=== PATIENT | male | born 1970 | race Caucasian/White ===

== ENCOUNTER 2019-05-29 00:49 | Day surgery (SDC) | payer OTHER, SELFPAY ==
[2019-05-26 12:56] VITALS: BMI 25.9
[2019-05-29 06:35] VITALS: BP 129/75; PULSE 75; RESP 18; TEMP 36.2; O2SAT 100; BMI 27.1
[2019-05-29] MEDS: LACTATED RINGERS 1,000 ML 150 ML IV CONT (06:48)
--- NOTE | 2019-05-29 08:05 | WPDANESEPPF ---
Anes - Initial Pre Proc Eval Procedure: Operation Date: 05/29/19 08:30 Proposed Procedures p Esophagogastroduodenoscopy - Parker Jauregui DO Date/Time: 05/29/19 08:05 Surgeon: Parker Jauregui DO Pre Op Diagnosis: dysphagia Patient Data Age: 48 Gender: M Height: 5 ft 11 in Weight: 88.14 kg Last Vital Signs Temp 36.2 C L 05/29/19 06:35 Pulse 75 05/29/19 06:35 Resp 18 05/29/19 06:35 BP 129/75 05/29/19 06:35 Pulse Ox 100 05/29/19 06:35 Allergies Allergy/AdvReac Type Severity Reaction Status Date / Time No Known Allergies Allergy Verified 05/29/19 06:34 Home Medications Medication Instructions Recorded Confirmed Type acetaminophen [Tylenol Extra 1,500 mg PO BID 05/26/19 05/26/19 History Strength] ibuprofen 400 mg PO BID 05/26/19 05/26/19 History Patient hx anesthesia problems: none Family hx anesthesia problems: none PMFSH Family History Family History Father Family history of type 1 diabetes mellitus Social History Social History Smoking status: Never smoker Second hand tobacco smoke exposure: No Alcohol intake: never Gender identity (if verbalized by the patient): Male Anes - Eval Final PreProcedure Day of Procedure 05/29/19 08:05 Patient weight: overweight Heart: regular rate and rhythm Lungs: clear to auscultation Airway: Mallampati scale class II Neurological: alert and oriented Last oral intake: >/= 8 hours ASA classification: II Emergent: no Anesthetic plan: proceed Anesthesia type and monitoring: general GIVS and standard monitoring Informed Consent: The patient's anesthetic plan and its attendant risks and benefits were discussed with the patient/family/POA. Questions were solicited and answers provided to the satisfaction of the patient/family/POA.
--- NOTE | 2019-05-29 08:19 | PM.IMHP ---
H&P: HPI History of Present Illness Chief complaint: dysphagia Narrative: Reason for visit EGD. This very pleasant gentleman is seen in consultation at the request of the primary physician and with the patient's permission. Impression: This very pleasant gentleman is history of dysphagia. He has a previous history of GERD/eosinophilic esophagitis. Recommendation: EGD. History: Very pleasant gentleman is a history of reflux disease /eosinophilic esophagitis. Patient has developed recurrent dysphagia. He is here for endoscopic evaluation to assess for lying stricture. Will also determine if a recurrent therapy for eosinophilic esophagitis was required. Physical examination: General: very pleasant patient in no acute distress. HEENT: Head was normocephalic sclerae is clear mouth without masses neck was supple. Heart: Rate rhythm regular without S3 or S4. Lungs: CTA. Abdomen: Soft with no guarding or rigidity. Bowel sounds were active. Neurologic: Cranial nerves 2 through 12 intact. No focal defects. No clonus. Musculoskeletal system: Revealed no joint tenderness or swelling no muscle atrophy. Extremities: Reveal no significant edema. Skin: Warm and dry with normal turgor. Mental status: intact. Patient is alert and oriented. Review of Systems Review of Systems: All systems reviewed & are unremarkable except as noted in HPI and below PMFSH Surgical History Surgical History (Updated 05/29/19 @ 08:28 by Parker Jauregui DO) H/O colonoscopy History of esophagogastroduodenoscopy (EGD) History of tonsillectomy and adenoidectomy Family History Family History Father Family history of type 1 diabetes mellitus Social History Social History Smoking status: Never smoker Second hand tobacco smoke exposure: No Alcohol intake: never Gender identity (if verbalized by the patient): Male Meds Home Medications and Allergies Home Medications Medication Instructions Recorded Confirmed Type acetaminophen [Tylenol Extra 1,500 mg PO BID 05/26/19 05/26/19 History Strength] ibuprofen 400 mg PO BID 05/26/19 05/26/19 History Allergies Allergy/AdvReac Type Severity Reaction Status Date / Time No Known Allergies Allergy Verified 05/29/19 06:34 Vital Signs Vital Signs - 24 hr 05/29/19 06:35 Temperature 36.2 C L Pulse Rate 75 Respiratory Rate 18 Blood Pressure 129/75 Pulse Oximetry 100
[2019-05-29 08:42] VITALS: BP 107/70; PULSE 67; RESP 19; O2SAT 99
[2019-05-29 08:52] VITALS: BP 98/67; PULSE 69; RESP 18; O2SAT 98
[2019-05-29 09:02] VITALS: BP 111/76; PULSE 55; RESP 20; O2SAT 100
== END 2019-05-29 09:15 | disposition home or self-care (01) ==
PROVIDERS: PCP Family Medicine; Visit Provider Internal Medicine Gastroenterology
PROC: 0DJ08ZZ Inspection of Upper Intestinal Tract, Via Natural or Artificial Opening Endoscopic (ICD-10-PCS; CPT 43235; principal; 2019-05-29 08:30)
DX: K22.2 Esophageal obstruction (principal); K21.0 Gastro-esophageal reflux disease with esophagitis
CPT/HCPCS: 43249; 43239; 87081; 88305; C1726; J2704; J7120

== ENCOUNTER 2022-09-22 00:35 | Day surgery (SDC) | payer OTHER, SELFPAY ==
[2022-09-18 13:05] VITALS: BMI 26.2
--- NOTE | 2022-09-18 13:20 | PC.NURSE ---
Report to the Outpatient Waiting Room, entrance under the green pavilion located off [facility], at 1000 on 09/22/2022. Planned Procedure Time: 1200. Time changes happen often and if your time is changed the preop area will call you the afternoon before. - You and your visitor will be asked to self-screen and do not enter if you have any COVID symptoms. - A mask is optional within the hospital at this time. Patients may have clear liquids (water, carbonated beverages, clear teas, apple juice) until 3 hours prior to surgery with a maximum of 20 ounces. - No food from midnight until time of surgery. Take the following medications with a SIP of water the morning of surgery: CELEBREX, TYLENOL, TRAMADOL DO NOT STOP ANY OF YOUR OTHER PRESCRIPTION MEDICATIONS PRIOR TO SURGERY ?EXCEPT THE FOLLOWING Medications to discontinue per physician ALL VITAMINS/SUPPLEMENTS 3 DAYS PRIOR TO SURGERY Date to take last dose Please no make-up, nail slovak, hairspray, perfume, deodorant, or body powder the day of surgery. No jewelry (including any body piercings) or valuables the day of surgery, leave them at home. Please take a shower or bath the night before, or the morning of, surgery with an antibacterial soap. Wear comfortable, loose fitting clothing. - Jewelry must be removed prior to entering the operating room. Rings and piercings that are not removed may be cut off. - The hospital will not accept responsibility for valuables. - Please leave all valuables, including medications, at home the day of surgery. If you are going home after surgery, a licensed cdl flatbed truck driver must drive you home. - NO public transportation without another adult if you receive anesthesia. - We recommend that an adult stay with you for 24 hours following discharge. - We also recommend that you do not drive, make important decision, drink alcoholic beverages, or take any drugs that were not prescribed by your health care provider for at least 24 hours after your discharge time. Follow any additional instructions given to you from your surgeon. If you or anyone in your household have experienced Covid symptoms in the past week, please notify your surgeon or the nurse liaison at the phone number below for possible testing. Telephone instructions given to patient and asked if any additional questions and then verbalized understanding. Patient advised to call surgeon office or pre surgery nurse liaison [phone] if any additional questions.
--- NOTE | 2022-09-18 13:28 | PC.NURSE ---
Dr. Freire aware of maternal great uncle's hx of MH-nothing further needed.
[2022-09-22] VITALS (10 sets, daily range): BP systolic 119–134; BP diastolic 72–85; PULSE 68–93; RESP 12–14; TEMP 36.7; O2SAT 98–100
[2022-09-22] MEDS: LACTATED RINGERS 1,000 ML 30 ML IV CONT ×2 (10:45→14:50)
--- NOTE | 2022-09-22 11:44 | WPDANESEPPF ---
Anes - Initial Pre Proc Eval Procedure: Operation Date: 09/22/22 12:00 Proposed Procedures p Left Arthroscopic Rotator Cuff Repair - Herbert Flaherty MD Date/Time: 09/22/22 11:44 Surgeon: Herbert Flaherty MD Pre Op Diagnosis: complete left rotator cuff tear Patient Data Age: 52 Gender: M Height: 1.79 m Weight: 85.65 kg Allergies Allergy/AdvReac Type Severity Reaction Status Date / Time No Known Allergies Allergy Verified 09/18/22 13:00 Home Medications Medication Instructions Recorded Confirmed Type acetaminophen 500 mg tablet 1,500 mg PO BID 05/26/19 09/22/22 History (Tylenol Extra Strength) omeprazole 40 mg capsule,delayed 40 mg PO DAILY PRN Indigestion 10/02/19 09/22/22 History release celecoxib 100 mg capsule (Celebrex) 100 mg PO BID #60 caps 03/05/22 09/22/22 Rx tramadol 50 mg tablet 50 mg PO Q6H PRN Pain 07/12/22 09/22/22 History ascorbic acid (vitamin C) 1,000 mg 4 g PO DAILY 09/18/22 09/22/22 History capsule glucosamine HCl-sulfate mix 200 1 tablet PO BID 09/18/22 09/22/22 History mg-300 mg tablet fouvxosh-vs-kukhf 300 mcg-K 60 1 tablet PO DAILY 09/18/22 09/22/22 History mcg-lycop 600 mcg-lutein 300 mcg tablet (Centrum Silver Men) omega-3s 720 mg-dha 300 mg-epa 360 1 cap PO DAILY 09/18/22 09/22/22 History mg-fish oil 1,200 mg capsule Patient hx anesthesia problems: none Family hx anesthesia problems: none Results Review: All pre-operative results and documents have been reviewed as part of the pre-operative evaluation. [facility] Past Medical History Medical History History of stress test (~2011) History of vertigo Surgical History Surgical History H/O colonoscopy (~01/2020) repeat in 5 years History of esophagogastroduodenoscopy (EGD) (~01/2020) History of tonsillectomy and adenoidectomy Family History Family History Father Family history of type 1 diabetes mellitus Liver cancer Lymphoma Fibromyalgia Mother Scoliosis Social History Social History Smoking status: Never smoker Second hand tobacco smoke exposure: No Alcohol intake: never Substance use: never Lack of Transportation: No Lack of Food: Never True Current Housing: I Have Housing Concerned About Future Housing: No Difficulty Paying Gas/Electric Bills: No Difficulty Paying for Meds: No Currently Unemployed: No Education: Master's Degree or Higher Difficulty w/ Childcare or Family Care: No Living arrangements: with family Gender identity (if verbalized by the patient): Male Spiritual care concerns: No Anes - Eval Final PreProcedure Day of Procedure 09/22/22 11:44 Patient weight: overweight Heart: regular rate and rhythm Lungs: clear to auscultation Airway: Mallampati scale class II Neurological: alert and oriented Last oral intake: >/= 8 hours ASA classification: II Emergent: no Anesthetic plan: proceed Anesthesia type and monitoring: general ETT and standard monitoring Results Review: All pre-operative results and documents have been reviewed as part of the pre-operative evaluation. Informed Consent: The patient's anesthetic plan and its attendant risks and benefits were discussed with the patient/family/POA. Questions were solicited and answers provided to the satisfaction of the patient/family/POA.
[2022-09-22] MEDS: SCOPOLAMINE 1.5 MG PATCH TRANSDERM (12:10)
--- NOTE | 2022-09-22 12:10 | WPDHPUPDATE1 ---
History and Physical Update Update Date/Time: 09/22/22 12:10 History and Physical has been reviewed, including an updated exam of the patient. There are NO changes in the patient's condition. Risks, benefits, and alternatives have been discussed and questions answered. Patient agrees to proceed with procedure.
[2022-09-22] MEDS: ceFAZolin 2 GM/D5W 50 ML 2 GM/50 ML BAG IVPB (12:39)
--- NOTE | 2022-09-22 12:40 | WPDANESPNB ---
Anes - Peripheral Nerve Block Date/Time: 09/22/22 12:40 I have discussed with the patient/family/POA the placement of a peripheral nerve block for post-operative pain management, including associated risks, benefits, complications, and side effects. Alternative methods of post-operative analgesia were detailed. Questions were solicited and answers provided to the satisfaction of the patient/family/POA. Time-Out: A pre-procedural Time-Out was completed immediately before starting the procedure and confirmed: Patient Identification, Site, Procedure, Patient Position and the Availability of Requisite Equipment. Clinical Indications: Acute post-operative pain management requested by the operative surgeon. Nerve Block Insertion Note Anes-nerve block: interscalene Patient position: other (sitting) Skin prep: chlorhexidine Needle: 22 gauge, stimulating, insulated echogenic needle. Needle length: 50 mm Technique: nerve stimulation lost at (mA) and ultrasound Technique comment: mid2mg [id number] Injectate: bupivacaine 0.5% with epi 5 mcg/ml (30ml no epi) and dexamethasone (mg) (4) Observations: tolerated well Complications: none Procedure start time:: 1230 Procedure end time:: 1236
--- NOTE | 2022-09-22 14:32 | P.OP_ITS ---
Procedure Note - Detailed Date of Procedure 09/22/22 Pre-op Diagnosis complete left rotator cuff tear Post-op Diagnosis Other (1. Rotator cuff tear 2. Subacromial impingement ) Procedure Performed Left shoulder 1. Arthroscopic rotator cuff repair 2. Arthroscopic subacromial decompression Surgeon Herbert Flaherty MD Strip Stamp Straightener Angie Talavera PA-C Anesthesia General and Regional ( interscalene block) Findings Medium size tear with mild retraction of the supraspinatus. Good tissue quality. Biceps intact. Mild labral fraying. Significant global laxity of the shoulder. Evidence impingement on the undersurface of the acromion. Modest acromioplasty performed. Two tunnel 6 suture repair of the rotator cuff. Anatomic reduction without undue tension on the cuff. No glenohumeral arthritis. Description of Procedure Preoperative antibiotics were given. An interscalene block was administered in the preoperative area. The patient was bought brought to the operating room. A general anesthetic was administered. The patient was carefully positioned in the beach chair position. The head and neck were carefully positioned. The non operative extremity was also carefully positioned. The shoulder was prepped and draped in the usual sterile fashion. Examination was performed. Standard posterior and anterior arthroscopic portals were established. Inflow achieved with the arthroscopic pump using saline and epinephrine. The glenohumeral joint was carefully inspected. There was mild fraying of the superior and posterior labrum. The anterior labrum was slightly attenuated. He had a tendency for significant capsular laxity. Biceps and subscapularis were normal. There was no articular cartilage damage. Attention was turned to the subacromial space. The bursal tissue was quite minimal. The subacromial space distended notably more than typically observed. A complete bursectomy was performed. The medium shaped tear was carefully assessed. The tissue was quite mobile and reducible. The rotator cuff and footprint were lightly debrided. A modest acromioplasty was performed. The tear configuration was carefully assessed. At this point, 2 tunnels were created at the rotator cuff. The ArthroTunneler technique was utilized. Three sutures were passed through each tunnel. All sutures were then passed through the cuff tissue. A rip stop with the 2nd and 5th suture was performed. The sutures were tied arthroscopically. The arthroscopic instruments were removed. The wounds were closed with 3-0 Monocryl subcuticular suture and steri strips. There were no complications. A sling was applied and the patient brought to the recovery room. Physician nutritional assistant, Angie Talavera PA-C, required for surgery; including patient positioning, draping, arthroscopic camera operation, maintaining instrument position, suture retrieval, wound closure, and dressing and sling placement. Estimated Blood Loss 10 Pathology None sent Complications No immediate complications Condition Stable Disposition PACU [facility] Billing Surgery - Charge Forward: Surgery Billing
[2022-09-22] MEDS: oxyCODONE HCL (*CRX) 5 MG TAB IR PO (16:15)
== END 2022-09-22 17:07 | disposition home or self-care (01) ==
PROVIDERS: Visit Provider Orthopaedic Surgery
PROC: (CPT 29805; principal; 2022-09-22 12:00)
DX: M75.122 Complete rotator cuff tear or rupture of left shoulder, not specified as traumatic (principal); G89.18 Other acute postprocedural pain
CPT/HCPCS: 29827; 29826; 64415; A4565; A9270; J0171; J0690; J1100; J2250; J2405; J2704; J3010; J7120